=== PATIENT | male | born 1970 | race Caucasian/White ===

== ENCOUNTER 2018-07-14 20:35 | Observation (INO) | payer BC ==
[2018-07-14] MEDS ORDERED: Metoclopramide IV* 5 MG/ML 2 ML VIAL IV SLOW PU ONE (20:40)
[2018-07-14] MEDS ORDERED: Metoprolol Tartrate IV* 1 MG/ML 5 ML VIAL IV ONE ×2 (20:40→21:28)
--- NOTE | 2018-07-14 20:42 | ED ---
Headache - HPI Summary HPI Summary: This patient is a 47 year old male brought in by EMS presenting to [facility] with a chief complaint of headache and right sided weakness. The patient was driving home from a stress test when he experienced a frontal headache. Per EMS, he was experiencing some right leg weakness. The patient experienced nausea and vomiting 4 times. The patient states he works out regularly (5X/day) and states that this workout was not overly extertional for him. He says he did situps, pushups, and step-ups and the onset of the headache was during the step ups. He started feeling the weakness and vomiting in the car on his way home. Pt denies any fever, chills, erythema of eyes, sore throat, CP, SOB, cough, abdominal pain, dysuria, hematuria, myalgia, edema, rash, or dizziness. Vital signs: Systolic 160s, per EMS. - History Of Current Complaint Stated Complaint: HEADACHE, VOMITING, RIGHT SIDED WEAKNESS PER EMS Hx Obtained From: Patient, EMS Onset/Duration: Sudden Onset, Started minutes ago Timing: Minutes Location of Headache: Frontal - Allergies/Home Medications Allergies/Adverse Reactions: Allergies Allergy/AdvReac Type Severity Reaction Status Date / Time Penicillins Allergy Unknown Verified 07/14/18 20:53 Reaction Details Home Medications: Home Medications Acetaminophen [APAP] 2 tab PO DAILY 07/14/18 [History Confirmed 07/14/18] Multivitamin [Multivitamins] 1 cap PO DAILY 07/14/18 [History Confirmed 07/14/18 ] PMH/Surg Hx/FS Hx/Imm Hx Endocrine/Hematology History: Denies: Hx Diabetes Cardiovascular History: Denies: Hx Coronary Artery Disease - Family History Known Family History: Negative: Hypertension - Social History Alcohol Use: None Hx Substance Use: No Substance Use Type: Reports: None Hx Tobacco Use: No Review of Systems Negative: Fever, Chills Negative: Erythema Negative: Sore Throat Negative: Chest Pain Negative: Shortness Of Breath, Cough Positive: Vomiting, Nausea. Negative: Abdominal Pain Negative: dysuria, hematuria Negative: Myalgia, Edema Negative: Rash Positive: Headache, Weakness All Other Systems Reviewed And Are Negative: No Physical Exam - Summary Physical Exam Summary: Constitutional: Well-developed, Well-nourished, Alert. (-) Distressed. Patient clutching his head. HENT: Normocephalic; Atraumatic Eyes: Conjunctiva normal Neck: Musculoskeletal ROM normal neck. (-) JVD, (-) Stridor, (-) Tracheal deviation Cardio: Rhythm regular, rate normal, Heart sounds normal; Intact distal pulses; The pedal pulses are 2+ and symmetric. Radial pulses are 2+ and symmetric. (-) Murmur Pulmonary/Chest wall: Effort normal. (-) Respiratory distress, (-) Wheezes, (-) Rales Abd: Soft, (-) tenderness, (-) Distension, (-) Guarding, (-) Rebound Musculoskeletal: (-) Edema Lymph: (-) Cervical adenopathy Neuro: Alert, Oriented x3. No discernable weakness. Skin: Warm, Dry Psych: Mood and affect Normal Triage Information Reviewed: Yes Vital Signs On Initial Exam: Temp Pulse Resp BP Pulse Ox 97.5 F 79 18 167/97 97 07/14/18 20:49 07/14/18 20:49 07/14/18 20:49 07/14/18 20:49 07/14/18 20:49 Vital Signs Reviewed: Yes Procedures - Procedure Summary Procedure Summary: LUMBAR PUNCTURE PROCEDURE NOTE: With informed consent L4-L5 was accessed, no fluid returned. Betadine prep used. L3-L4 was accessed left lateral decubitus position. Opening pressure was 12 cm of water. 4 tubes of clear fluid collected. Patient tolerated the procedure well. Diagnostics - Laboratory Result Diagrams: 07/14/18 20:59 07/14/18 20:59 Lab Statement: Any lab studies that have been ordered have been reviewed, and results considered in the medical decision making process. - Radiology CXR Radiology Interpretation Completed By: ED Physician Summary of Radiographic Findings: No acute disease. Pending official radiologist report. - CT Brain CT Interpretation Completed By: Radiologist Summary of CT Findings: No acute intracranial abnormality. ED Provider has reviewed this report. - EKG 2053 Cardiac Rate: NL EKG Rhythm: Sinus Rhythm - 78 BPM Summary of EKG Findings: No STEMI. Headache Course/Dx - Course Course Of Treatment: This patient is a 47 year old male brought in by EMS presenting to [facility] with a chief complaint of headache and right sided weakness. Physical exam was unremarkable for weakness. Brain CT was unremarkable. The case was discussed with Dr. Fowler, Neurology at [facility], and he will perform a telestroke. Dr. Fowler recommended lumbar puncture. LUMBAR PUNCTURE PROCEDURE NOTE: With informed consent L4-L5 was accessed, no fluid returned. Betadine prep used. L3- L4 was accessed left lateral decubitus position. Opening pressure was 12 cm of water. 4 tubes of clear fluid collected. Patient tolerated the procedure well. Patient will be signed-out to Dr. Person pending CT scan and Lumbar Puncture results. - Diagnoses Provider Diagnoses: Severe headache - Physician Notifications Discussed Care Of Patient With: Jackson Fowler - Dr. Fowler recommended lumbar puncture, CTA, MRI. I did discuss with him the high sensitivity of CT between 95 and 99% at this time of onset for CT to rule out subarachnoid hemorrhage. He stood by his recommendation. - Critical Care Time Critical Care Time: 30-74 min - 60 mins Discharge - Sign-Out/Discharge Documenting (check all that apply): Sign-Out Patient Signing out patient TO: Awais Person - At shift change 2200 Patient Received Moderate/Deep Sedation with Procedure: No - Discharge Plan Condition: Stable Referrals: No Primary Care Phys,NOPCP [Primary Care Provider] - - Attestation Statements Document Initiated by Scribe: Yes Documenting Scribe: Archie Nash Provider For Whom Scribe is Documenting (Include Credential): Mauricio Levin MD Scribe Attestation: IArchie, scribed for Mauricio Levin MD on 07/14/18 at 2244. Status of Scribe Document: Ready
[2018-07-14 21:07] LABS: ABS Lymphocytes 0.9 10^3/ul (1.0-4.8); ABS Monocytes 0.6 10^3/ul (0-0.8); ABS Neutrophils 9.3 10^3/ul (1.5-7.7); Eosinophil % 0.2 %; Hematocrit 44 % (42-52); Hemoglobin 14.9 g/dL (14.0-18.0); Lymphocyte % 8.5 %; Mean Corpuscular HGB Conc 34 g/dL (31-36); Mean Corpuscular Hemoglobin 28 pg (27-31); Mean Corpuscular Volume 83 fL (80-94); Mean Platelet Volume 6.7 fL (7.4-10.4); Platelet Count 278 10^3/uL (150-450); Red Blood Count 5.26 10^6 /uL (4.18-5.48); Red Cell Distribution Width 14 % (10.5-15); White Blood Count 10.9 10^3/uL (3.5-10.8)
[2018-07-14 21:15] LABS: Activated Partial Thrombo Time 29.7 seconds (26.0-38.0); INR 1.01 (0.82-1.09)
[2018-07-14 21:25] LABS: ALT 34 U/L (7-52); AST 25 U/L (13-39); Albumin 4.6 g/dL (3.2-5.2); Albumin/Globulin Ratio 1.5 (1-3); Alkaline Phosphatase 63 U/L (34-104); Anion Gap 9 mmol/L (2-11); BUN/Creatinine Ratio 16.8 (8-20); Blood Urea Nitrogen 20 mg/dL (6-24); CO2 Carbon Dioxide 24 mmol/L (22-32); Calcium 9.6 mg/dL (8.6-10.3); Chloride 104 mmol/L (101-111); Cholesterol 158 mg/dL; EGFR African American 78.6 (>60); Glucose 147 mg/dL (70-100); HDL Cholesterol 33.1 mg/dL; LDL Cholesterol 97 mg/dL; Potassium 4.1 mmol/L (3.5-5.0); Sodium 137 mmol/L (135-145); Total Protein 7.6 g/dL (6.4-8.9); Triglycerides 139 mg/dL
[2018-07-14] MEDS ORDERED: Morphine 4 MG/ML VIAL (1 ml) 4 MG/ML VIAL IV ONE (21:28)
[2018-07-14 21:31] LABS: Troponin I 0.04 ng/mL (<0.04)
[2018-07-14] MEDS ORDERED: Magnesium Sulfate 2 GM IV* 2 GM/50 ML BAG IVPB ONE (21:52)
[2018-07-14] MEDS ORDERED: diPHENhydraMINE IV* 50 MG/ML 1 ml VIAL (BENADRYL) SLOW PUSH ONE (21:54)
[2018-07-14] MEDS ORDERED: Iohexol 350* (CONTRAST) 500 ML MDV IV ONE (22:17)
[2018-07-14 23:01] LABS: Body Fluid Source Cerebral Spinal
[2018-07-14 23:21] LABS: CSF Glucose 70 mg/dL (40-70)
--- NOTE | 2018-07-15 00:14 | ED ---
Progress - Progress Note Progress Note: The patient is a sign-out to Dr. Awais Person MD, from Dr. Mauricio Levin MD , at shift change at 2200 pending lumbar puncture and CTA results and disposition. Head CTA impression reveals no significant findings for stenosis, occlusion, or aneurysm. Lumbar puncture reveals no neutrophils or organisms observed with culture still pending. He is accepted for admission by Dr. Prajapati, hospitalist, at 0015. He is diagnosed with headache. He agrees with this plan and understands the need for admission at this time. - Results/Orders Results/Orders: Head CTA: 1. No hemodynamically significant stenosis or large vessel occlusion. 2. No intracranial aneurysm. ED physician has reviewed this radiology report. Course/Dx - Diagnoses Provider Diagnoses: Severe headache, TIA (transient ischemic attack) During the Visit The Following Alert/Code Occurred: Code [place] - Provider Notifications Discussed Care Of Patient With: Ramo Prajapati - hospitalist Time Discussed With Above Provider: 00:15 Instructed by Provider To: Other - Dr. Prajapati accepts the patient for admissino based on findings during the patient's case. - Critical Care Time Critical Care Time: 30-74 min - 60 mins Discharge - Sign-Out/Discharge Documenting (check all that apply): Patient Departure - Patient is accepted for admission by Dr. Prajapati., Receiving Sign-Out Receiving patient FROM: Mauricio Levin - Patient is a sign-out from Dr. Levin at shift change pending lumbar puncture and CTA results and disposition. Patient Received Moderate/Deep Sedation with Procedure: No - Discharge Plan Condition: Stable Disposition: ADMITTED TO [facility] - Billing Disposition and Condition Condition: STABLE Disposition: Admitted to [facility] - Attestation Statements Document Initiated by Jalil: Yes Documenting Scribe: Sirisha Back Provider For Whom Jalil is Documenting (Include Credential): Dr. Awais Person MD Scribe Attestation: Sirisha Busby scribed for Dr. Awais Person MD on 07/15/18 at 0254. Scribe Documentation Reviewed: Yes Provider Attestation: The documentation as recorded by the Sirisha diego accurately reflects the service I personally performed and the decisions made by , Dr. Awais Person MD Status of Scribe Document: Viewed
[2018-07-15] MEDS ORDERED: Butalb/Acetamin/Caff TAB* 1 TAB PO ONE (00:25)
--- NOTE | 2018-07-15 00:54 | HP ---
History of Present Illness - History of Present Illness Reason for Visit: headache History of Present Illness: Patient is a 47 year old man with no medical history who was exercising at a gym this evening, stepping up and down from a step, when he developed a moderately severe bifrontal headache. The headache was not associated with photophobia, visual changes or vomiting. He was able to continue exercising, and start to drive home. The headache continued and he began vomiting after stopping on the side of the road, and vomited 4 times. He then noted right arm heaviness and right leg weakness. He was brought to ER, under a code cannon protocol. The ER doctor communicated with Dr. Fowler at [facility], and it was advised that he have an LP to rule out subarachnoid hemorrhage. - Past Surgical History Past Surgical History: Other - RT ACT repair - Past Family History Family History: None - adopted - Past Social History Smoke: No Occupation: works in [employer] services Alcohol: None Drugs: None Lives: With Family - , 2 young children Review of Systems - Measurements Intake and Output: Intake and Output Last 24 Hours 07/12/18 07/13/18 07/14/18 07/15/18 06:59 06:59 06:59 06:59 Intake Total 50 Balance 50 Weight 95.254 kg Intake: IV Fluids 50 - Review of Systems Constitutional Symptoms: Negative: Fever Dermatology: Positive: Normal HEENT: Positive: Normal Eyes: Positive: Normal Thyroid: Positive: Normal Pulmonary: Positive: Normal Cardiology: Positive: Normal Gastroenterology: Positive: Normal Genital - Urinary: Positive: Normal Endocrinology: Positive: Normal Neurology: Positive: Headache, Change in Walking, Unexplained Weakness Negative: Migraines, Diplopia, Dizziness, Hx of Stroke\TIA, Hx of Seizures Psychiatry: Positive: Normal Allergic/Immunologic: Negative: Asthma, Immunocompromise Objective Active Medications: Ambulatory Orders Acetaminophen 2 tab PO DAILY 07/14/18 Multivitamin [Multivitamins] 1 cap PO DAILY 07/14/18 Vital Signs - 8 hr 07/14/18 07/14/18 07/14/18 20:49 20:52 20:53 Temperature 36.4 C Pulse Rate 79 79 80 Respiratory 18 Rate Blood Pressure 167/97 167/97 (mmHg) O2 Sat by Pulse 97 96 96 Oximetry 07/14/18 07/14/18 07/15/18 23:39 23:53 00:00 Temperature Pulse Rate 73 70 73 Respiratory 17 14 18 Rate Blood Pressure 148/87 142/92 (mmHg) O2 Sat by Pulse 94 94 95 Oximetry Oxygen Devices in Use Now: None Appearance: alert, no distress Eyes: No Scleral Icterus Ears/Nose/Mouth/Throat: NL Teeth, Lips, Gums, Mucous Membranes Moist Neck: NL Appearance and Movements; NL JVP, Trachea Midline Respiratory: Symmetrical Chest Expansion and Respiratory Effort, Clear to Auscultation Cardiovascular: NL Sounds; No Murmurs; No JVD, RRR, No Edema Abdominal: NL Sounds; No Tenderness; No Distention, No Hepatosplenomegaly Lymphatic: No Cervical Adenopathy, No Axillary Adenopathy Extremities: No Edema Skin: No Rash or Ulcers Neurological: Alert and Oriented x 3, NL Sensation, - - upper extrem bilat 5/5 motor, LLE 5/5, RLE 4+/5 Lines/Tubes/Other Access: Clean, Dry and Intact Peripheral IV Nutrition: Taking PO's Result Diagrams: 07/14/18 20:59 07/14/18 20:59 Additional Lab and Data: Laboratory Tests 07/14/18 07/14/18 07/14/18 20:59 20:59 20:59 INR (Anticoag Therapy) 1.01 APTT 29.7 Glucose 147 H Lactic Acid 1.6 AST 25 ALT 34 Troponin I 0.04 H* Cholesterol 158 LDL Cholesterol 97 HDL Cholesterol 33.1 Fluid Source Fluid WBC Fluid RBC CSF Glucose CSF Total Protein 07/14/18 07/14/18 22:53 22:53 INR (Anticoag Therapy) APTT Glucose Lactic Acid AST ALT Troponin I Cholesterol LDL Cholesterol HDL Cholesterol Fluid Source Cerebral spinal Fluid WBC 0 Fluid RBC 0 CSF Glucose 70 CSF Total Protein 38 Diagnostic Imaging: CT brain: no infarct or bleed CTA head/neck: no stenosis or occlusion Assess/Plan/Problems-Billing Assessment: - Patient Problems (1) TIA (transient ischemic attack) Current Visit: Yes Status: Acute Priority: High Code(s): G45.9 - TRANSIENT CEREBRAL ISCHEMIC ATTACK, UNSPECIFIED SNOMED Code(s): 269252268 Comment: -Patient will be admitted to observation, followed on telemetry -Differential includes small stroke, TIA, seizure, complicated migraine -Will have MRI in AM. -If subtle deficits do not resolve, or if MRI positive, should see neurology -Echo ordered to rule out cardioembolic source -Aspirin 81 mg/day initiated. (2) Hypertension Current Visit: Yes Status: Acute Priority: Medium Code(s): I10 - ESSENTIAL (PRIMARY) HYPERTENSION SNOMED Code(s): 37593124 Comment: -BP elevated -Has tolerated Beta fer in ER -Will start oral metoprolol (3) DVT prophylaxis Current Visit: Yes Status: Acute Priority: Low Code(s): Z29.9 - ENCOUNTER FOR PROPHYLACTIC MEASURES, UNSPECIFIED SNOMED Code(s): 905899095 Comment: -low risk Status and Disposition: observation
[2018-07-15] MEDS: Metoprolol Tartrate TAB* 25 MG PO SCH ×2 (01:07→08:32)
[2018-07-15] MEDS: Acetaminophen TAB* 325 MG PO PRN ×3 (02:50→13:46)
[2018-07-15 03:29] LABS: Urine Appearance Clear; Urine Bilirubin Negative (Negative); Urine Blood Negative (Negative); Urine Color Straw; Urine Glucose Negative (Negative); Urine Ketones Negative (Negative); Urine Nitrite Negative (Negative); Urine Protein Negative (Negative); Urine Specific Gravity 1.019 (1.010-1.030); Urine Urobilinogen Negative (Negative)
[2018-07-15 04:10] LABS: Troponin I 0.19 ng/mL (<0.04)
[2018-07-15 07:00] LABS: Troponin I 0.15 ng/mL (<0.04)
[2018-07-15] MEDS ORDERED: Aspirin EC TAB* 81 MG TAB.EC PO SCH (09:00)
[2018-07-15] MEDS ORDERED: Indomethacin CAP* 25 MG CAP PO PRN (12:45)
--- NOTE | 2018-07-15 14:08 | ECHO ---
*[facility]* [place] [address] Fax #: [phone] Transthoracic Echocardiogram Patient: Ian, Height: 79 in / Leodan Gomez 200.7 cm : 1970 Weight: 209.6 lb / Study Date: 07/15/2018 95.3 kg Age: 47 BP: 138 / 86 Gender: M BMI/BSA: 23.7 kg/m^2 HR: / 2.33 m^2 *Addresser: Xin Lazcano [facility] *Referring Physician: * Raom Prajapati *Reading Physician: Thee Nieto MD Indications: TIA. Right sided weakness, headachce. Conclusions Summary: 1. Left ventricle: The cavity size is normal. Wall thickness is at the upper limits of normal. Systolic function is normal. The estimated ejection fraction is 60-65%. 2. Atrial septum: A PFO is demonstrated by agitated saline contrast. 3. No significant valve dysfuntion. Study data: Transthoracic echocardiogram. Procedure: Transthoracic echocardiography was performed. Image quality was good. Intravenous agitated saline was administered. A bubble study was performed. Complete 2D, spectral Doppler, and color flow Doppler. Location: ICU Patient status: Inpatient. Patient room number: ICU-1. No prior study is available for comparison. Rhythm: Normal sinus rhythm. Findings Left ventricle: The cavity size is normal. Wall thickness is at the upper limits of normal. Systolic function is normal. The estimated ejection fraction is 60-65%. Wall motion is normal; there are no regional wall motion abnormalities. Left ventricular diastolic function parameters are normal. Right ventricle: Well visualized. The cavity size is normal. Wall thickness is normal. Systolic function is normal. Ventricular septum: Well visualized. Left atrium: Well visualized. The atrium is normal in size. Right atrium: Well visualized. The atrium is normal in size. Atrial septum: Well visualized. A PFO is demonstrated by agitated saline contrast. Mitral valve: Well visualized. The leaflets are normal thickness. There is no evidence of stenosis. There is trivial regurgitation. Aortic valve: Well visualized. The valve is trileaflet. The leaflets are normal thickness. There is no evidence of stenosis. There is trivial regurgitation. Tricuspid valve: Well visualized. The leaflets are normal thickness. There is no evidence of stenosis. There is trivial regurgitation. Pulmonic valve: Well visualized. The leaflets are normal thickness. There is no evidence of stenosis. There is trivial regurgitation. Aorta: The aorta is well visualized and normal size. The aortic root is not dilated. Pericardium: There is no pericardial effusion. No evidence of pleural fluid accumulation. Pulmonary arteries: Well visualized. Systemic veins: Not well visualized. Pulmonary veins: Visualization of the pulmonary venous anatomy is incomplete, but a significant abnormality is unlikely. Measurements Left ventricle Value Ref Aortic valve Value Ref BARBI, LAX 4.5 cm 4.2 - Selina diam, ED 1.8 cm ---- 5.8 Selina diam/bsa, ED 0.8 cm/m^2 ---- ESD, LAX 2.9 cm 2.5 - Peak v, S 1.29 m/sec ---- 4.0 VTI, S 24.4 cm ---- FS, LAX 35 % 25 - 43 Mean grad, S 3.0 mm Hg ---- PW, ED, LAX (H) 1.4 cm 0.6 - Peak grad, S 7.0 mm Hg ---- 1.0 LVOT/AV, VTI ratio 0.75 ---- FS 35 % 25 - 43 AR peak v 2.93 m/sec ---- Mid-wall FS 15 % -------- AR PHT 613 ms ---- PW, ED 1.0 cm 0.6 - AR peak grad 34 mm Hg ---- 1.0 PW/ID, ED 0.23 -------- Mitral valve Value Ref E', lat selina, TDI 11.4 cm/sec >=10.0 Peak E 0.71 m/sec -- -- E/e', lat selina, TDI 6 -------- Peak A 0.57 m/sec ---- E', med selina, TDI 10.1 cm/sec >=7.0 Decel time 151 ms -- -- E/e', med selina, TDI 7 -------- Peak grad, D 2.0 mm Hg ---- E', avg, TDI 10.8 cm/sec -------- Peak E/A ratio 1.2 ---- E/e', avg, TDI 7 <=14 Pulmonic valve Value Ref LVOT Value Ref Peak v, S 0.83 m/sec ---- Peak ashanti, S 0.88 m/sec -------- Peak grad, S 3.0 mm Hg ---- VTI, S 18.3 cm -------- Mean grad, S 1 mm Hg -------- Aortic root Value Ref Root diam 3.4 cm <4.4 Ventricular septum Value Ref Root max diam, ED 3.4 cm <4.4 IVS, ED 1.0 cm 0.6 - 1.0 Ascending aorta Value Ref AAo AP diam, S 2.8 cm ---- Right ventricle Value Ref AAo AP diam/bsa, S 1.2 cm/m^2 ---- ABRBI, LAX 3.3 cm -------- BARBI minor ax, A4C 3.2 cm 1.9 - Aortic arch Value Ref mid 3.5 Arch diam 2.7 cm ---- Left atrium Value Ref Decending aorta Value Ref Vol/bsa, ES, 1-p 16 ml/m^2 12 - 37 Franco peak ashanti 0.92 m/sec ---- A4C Right atrium Value Ref ML dim, ES, A4C 3.7 cm 2.6 - 4.4 SI dim, ES, A4C (H) 5.5 cm 3.4 - 5.3 SI dim/bsa, ES, A4C 2.4 cm/m^2 1.8 - 3.0 Legend: (L) and (H) yoan values outside specified reference range. Prepared and electronically signed by Thee Huertas MD 07/15/2018 14:07
[2018-07-15] MEDS ORDERED: Metoprolol Tartrate IV* 1 MG/ML 5 ML VIAL ONE (15:24)
[2018-07-15] MEDS ORDERED: ALPRAZolam TAB* 0.25 MG PO ONE (16:28)
[2018-07-15] MEDS ORDERED: Atorvastatin* 40 MG TAB PO SCH (17:00)
--- NOTE | 2018-07-15 17:29 | CONS ---
NEUROLOGY CONSULTATION NOTE: DATE OF CONSULT: 07/15/18 CONSULTING PROVIDER: Eva Reid NP REASON FOR CONSULT: Evaluate for TIA. CHIEF COMPLAINT: Headache and transient right-sided weakness. HISTORY OF PRESENT ILLNESS: Mr. Sosa is a 47-year-old fairly healthy man who presented to [facility] yesterday via EMS due to sudden onset severe thunderclap-like headache associated with nausea, vomiting, and transient right - sided upper and lower extremity weakness. 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 He did 20 pushups, 20 sit-ups and then was doing the step test. Two minutes into the step test, he noticed that he developed a sudden onset of holocephalic severe pain that was 10/10 in severity. He was able to complete the test. Once everything was over, he drove home and noticed that the headache was not going away. The patient then had a sudden onset of nausea and vomiting. He was having initially dry heaves 4-5 times before he started vomiting. He called his cousin who is a nurse and his cousin informed him that he needs to call EMS right away. During that process, the patient noticed that he had a heavy sensation in both arms, but right more than the left. When EMS arrived, his NIH stroke scale was apparently reported to be 0. When he arrived to the ED, his NIH stroke scale was 0. He was not a candidate for IV tPA or mechanical thrombectomy. He had CT head without contrast that showed no evidence of acute intracranial abnormality. He had a stat CTA head and neck that showed no hemodynamically significant stenosis or large vessel occlusion. Due to the concern of subarachnoid hemorrhage, the patient underwent lumbar puncture, which showed evidence of 0 RBC. The patient had also other lab work done, which showed a WBC of 10.9, hemoglobin of 14.9, hematocrit of 44, platelet count of 278. INR of 1.01. Sodium of 137, potassium of 4.1, chloride of 104, carbon dioxide of 24, anion gap of 9, BUN of 20, creatinine of 1.19, lactic acid of 1.6. His troponin I was elevated at 0.4, then 0.19, and then it trended down to 0.15. LDL is 97, cholesterol is 158, triglyceride of 139. Urinalysis is negative for pyuria. The patient was placed on aspirin and was given morphine and Fioricet for the headache. Currently, his headache is 4/10 in severity. MRI of brain showed no area of restricted diffusion to suggest stroke. Transthoracic echo showed a normal ejection fraction of 60% to 65%, atrial septal PFOs demonstrated by agitated saline. PAST MEDICAL HISTORY: None. MEDICATIONS: 1. Multivitamin. 2. Acetaminophen for shoulder pain. ALLERGIES: PENICILLIN. FAMILY HISTORY: No family history of stroke or seizure. SOCIAL HISTORY: The patient is , lives with spouse. He denied any tobacco or excessive alcohol use. He denied any recreational drug use. REVIEW OF SYSTEMS: A 14-point review of systems was obtained and otherwise negative except for what was mentioned in the HPI. PHYSICAL EXAM: Vitals: Temperature of 97.4, pulse of 70, respiratory rate of 16, oxygen saturation of 99, blood pressure of 135/88. General: Well-nourished , well- developed fit man who appears younger than stated age. He is in no acute distress. Head: Normocephalic, atraumatic. No occipital notch tenderness. Negative Spurling sign bilaterally. Eyes: Conjunctivae/corneas are clear. Neck is supple and symmetrical with no carotid bruits. Lungs are clear to auscultation bilaterally. Cardiovascular: Regular rate and rhythm with normal S1, S2. Extremities: Normal range of motion with no cyanosis. Skin : No skin lesions or laceration. Psych: Affect is broad and normal mood, easy to establish rapport. Neurological Examination: Mental status: Awake, alert, and oriented to person, place and time and general circumstances. Speech and language including expression, repetition, comprehension were assessed and found to be normal. Cranial Nerves: Normal confrontation testing bilaterally. Pupils are mid range and reactive to light. Normal consensual response. Extraocular muscles are intact. No ptosis. Sensation is intact in the forehead. Normal facial droop. He is able to hear throughout the history process. Symmetrical palatal elevation. Normal strength against shoulder shrug. Tongue is symmetrical and midline with no atrophy or fasciculation. Motor Examination: No abnormal movements or pronator drift. 5/5 strength in the upper and lower extremity proximal and distally bilaterally. Reflexes: Right/left, brachioradialis 2/2, biceps 2/2, triceps 2/2, patella 3/2, ankle 1/1 , plantar flexor/flexor. Sensation is intact to light touch and pinprick throughout. Coordination: Normal [id number] and rapid alternating movement. Gait and station narrow based. Normal stance and gait. No ataxia. ASSESSMENT AND RECOMMENDATIONS: Mr. Leodan Sosa is a 47-year-old man who is fairly healthy, who was doing a fitness test on exercising for a [employer] job that he is interested in, who developed sudden onset thunderclap headache associated with dry heaves, nausea, vomiting, and transient very short lasting bilateral upper extremity fatigue/questionable weakness that was involving the right more than the left upper extremity. Neurological examination showed no evidence of a focal neurological deficit or any motor or reflex asymmetry. MRI of the brain showed no evidence of acute stroke. 1. Thunderclap headache. The differential diagnosis here would be mostly reversible cerebral vasoconstriction syndrome given his questionable focal neurological deficit, transient ischemic attack to the posterior circulation can sometimes cause headaches, or primary exertional headache, but that should not be associated with nausea, vomiting, or focal neurological deficits. The patient did not have a stroke. 2. Ongoing headache. I suspect there is again a component of tension headache versus a primary exertional headache. Reassuringly, there is no evidence of subarachnoid hemorrhage on the CT, which is quite sensitive for the first 6 hours. However, to confirm that, he had no RBCs on the lumbar puncture that was done in the ER. Therefore, the headache is likely benign and not secondary to severe neurological problem. 3. Elevated troponin level. This could potentially be related to post exercise , cardiac stress induced, or related to hypertensive urgency. I defer further management to Cardiology. There is no contraindication to a stress test at this time given that the patient has not had any stroke. Recommendation: The treatment for RCVS is calcium channel fer to control his blood pressure. Other treatments we can consider indomethacin 25 mg twice daily if his cardiovascular workup is negative. On other hand, we should not be using NSAIDs to control his headaches if he has any acute cardiovascular risk factors. I do agree with continuing aspirin 81 mg daily. I also started the patient on atorvastatin 40 mg daily for primary stroke prevention. We cannot entirely exclude a TIA especially given the patient has a PFO. I do recommend further workup for a PFO, possible transesophageal echo to evaluate the size of the PFO, to evaluate for atrial septal aneurysm and to consider closing. If the ANTONINO is negative and he has recurrent neurological deficits, he may require a LINQ device for further monitoring. We will be more than happy to see the patient in 2-3 weeks as an outpatient. In the meantime, I recommend treating the headaches with acetaminophen, indomethacin only if any acute cardiovascular pathology is ruled out. I counseled the patient and advised him to come back to the ED medially if he has any similar symptoms in the past. TIME SPENT: I spent a total of 75 minutes of which more than 50% was spent obtaining history, examining the patient, education and counseling, and discussing the treatment plan as mentioned above. I also discussed these treatment options with the patient's spouse at bedside. [id number]/[facility] #: [id number] BOB
[2018-07-15 17:55] VITALS: BP 136/81
--- NOTE | 2018-07-15 19:00 | CONS ---
CARDIOLOGY CONSULTATION: DATE OF CONSULT: 07/15/18 CONSULTING PROVIDER: Ashli Reid NP. REASON FOR EVALUATION: Abnormal troponins. HISTORY OF PRESENT ILLNESS: This is a 47-year-old gentleman with no significant past medical history, who was in his usual state of health until yesterday. He said that he travelled to [place] from his home near [place] in order to perform an evaluation for a new job. As part of the evaluation, he was asked to do fairly intense exercise in a short period of time. With the timed event and he had to do approximately 20 push ups and 20 sit-ups and then run on a set of steps at 120 steps per minute for 3 minutes. He said during the exercise he started to get a headache about 2 minutes into the program. After he just worked through, he said after the exercise, he continue to have he headache and felt nauseous. He drove home, continue to have a headache and then developed worsening nausea and dry heaves, he had to stop 3 to 4 times over the course of driving a few miles. After the fourth time, he called family and then it was decided to call 911. They were en route to pick him up and asked him to call back if he had changes. He noticed that he had trouble lifting his left arm. In the emergency room, he was evaluated for a possible CVA and was seen by Neurology. His symptoms of arm and right leg weakness resolved after about an hour and a half. He has continued to have a headache. He had a CTA of his head, which revealed no hemodynamically significant stenosis , no intracranial aneurysm. He also had a brain CT, which revealed no hemorrhage or mass effect and he had a brain MRI, which revealed normal brain, no restricted diffusion to suggest acute infract. He also had a spinal tap performed last night, which had no red cells and it was clear. Glucose was 70, CSF protein was 38. The patient's labs were significant for mildly elevated troponin of 0.4, subsequently went to 0.19 and then 0.15. Because of those findings, a cardiology evaluation was requested. The patient said normally he works out fairly regularly 5 days a week. He goes to the gym. He warms up, does some push ups and some weights and crunches and then does about 20 minutes on a treadmill. He said he has no chest pain, no shortness of breath or headaches during those routine programs. He denies any fevers, chills, sweats. No hypertension, diabetes, hyperlipidemia. PMH: denies PAST SURGICAL HISTORY: Right ACL repair. No other surgeries. ALLERGIES: PENICILLIN. FAMILY HISTORY: Unknown as he is adopted. SOCIAL HISTORY: No he denies tobacco use. He drinks 3 bottles of green tea a day. He denies alcohol use. He is , has 2 children, ages 4 and 6. 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 REVIEW OF SYSTEMS: Review of systems x10 was negative except as above. PHYSICAL EXAM: He is a well-developed, well-nourished, fit gentleman, in no apparent distress. Atraumatic normocephalic. Extraocular muscles intact. Sclera anicteric. No significant JVD. Carotid 2+ without bruits. No cervical adenopathy. No thyromegaly. Abdomen: Bowel sounds present, nontender. No HSM. Femoral pulses intact without bruits. Distal pulses intact. No edema. Motor strength 5/5 bilaterally. No skin lesions. No rashes. A and O x 3. DIAGNOSTIC STUDIES/LAB DATA: Labs from yesterday: Labs were remarkable for a mildly elevated troponin of 1.19 and elevated troponins as listed above at 0.04 , 0.19, and 0.15. Cholesterol was 158, HDL 33, LDL 97, triglycerides 139, and white count of 10.9, normal hematocrit, platelet count 278. His EKG revealed sinus rhythm with inferior Q-waves, possible old inferior IA and he had an echocardiogram today, which revealed a normal LV function. Small PFO demonstrated by agitated saline contract. No significant valve dysfunction. IMPRESSION: I discussed the case with Dr. Whitaker. He felt that perhaps the patient has had vasomotor dysfunction in the setting of hypertension and we discussed the possibility of doing stress test to evaluate further part of discharge. He agreed with proceeding with a stress test. A stress was performed (see separate report), in brief it revealed that he was able to complete 8 minutes 50 seconds of a Enrike to 10.1 mets. He had a mild headache at rest, which increased with peak exercise and test was discontinued because of the mild increase in his headache. His blood pressure was 163/106 at rest and increased to 226/87. He had no significant EKG changes. He had 1 PVC. His echo revealed normal wall motion at rest and normal hyperdynamic response to exercise at the level of exertion attained. It was a nondiagnostic test due to low heart rate achieved, but no evidence of ischemia at the heart rate attained. IMPRESSION: My impression is that Mr. Sosa's symptoms are of unclear etiology and elevated troponins are of unclear etiology, possibly related to vasomotor dysfunction in the setting of sudden intense exercise and hypertension. Therefore, I have recommended the followin. 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 2. I suggested that we start Cardizem for a possible vasomotor dysfunction and hypertension. 3. I would suggest the consideration of a pharmacological stress test as an outpatient at some point in time. 4. He is to return, if he has recurrent headaches or paresis. 5. I also explained the importance of appropriate warmup and cool down prior to exercise and to avoid sudden intense isometric exercise. 6. Also I discussed with him and his the possibility that the PFO could result in some paradoxical shunting. It does not appear that this presentation was related to a cerebral infarct; however, I did ask him to avoid excessive straining and Valsalva. 7. He is to followup with neurology when he returns home. [id number]/[facility] #: [id number] BOB
--- NOTE | 2018-07-16 00:51 | DS ---
CC: Dr. Altamirano; Dr. Thee Huertas; Dr. Sachi Whitaker; Dr. Zee Maravilla; Dr. Soraya Vasquez, Neurology, [place] * DISCHARGE SUMMARY: DATE OF ADMISSION: 07/15/18 DATE OF DISCHARGE: 07/15/18 PRIMARY CARE PROVIDER: Dr. Altamirano, [place], [place]. MY ATTENDING FOR TODAY: Dr. Zee Maravilla.* (DICTATED BY NAYELY SUAZO NP) HOSPITAL COURSE: This is a very pleasant 47-year-old male patient that arrived in the emergency department after some exertional activity. The patient reports that he was doing some qualifying trials for a job. He was prepping for a new position in which he had to do some serious workout activities where he developed a moderately severe bifrontal headache. The headache came on very suddenly. He denied any visual changes or any focal weakness at the time the headache started. He was able to continue through his exercise routine and activities that evening; however, when he drove home his headache began to get worse. 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 Shortly thereafter, he noted some right-sided weakness and then a form of heaviness on the right arm and leg. He subsequently was brought to the emergency department where a carloz nowak was called. He was seen through Telemedicine by Dr. Fowler at [facility]. At that point, it was questionable whether the patient could have had a subarachnoid hemorrhage based on his sudden and abrupt onset of symptoms. He did receive a lumbar puncture which was negative. CAT scan of the head was negative. CTA of the head was negative for any large vessel occlusion. He was admitted to ICU for close observation. He did have moderate troponinemia that was also noted on his laboratory work and a mildly elevated creatinine, which was attributed to dehydration. The patient received IV fluid boluses in the emergency department. Troponin was trended, initially at admission was 0.04, peaked at 0.19 and trended down to 0.15. It is important to note the patient denied any anginal equivalence. He denied any chest pain or shortness of breath. The patient was seen by Dr. Whitaker of Neurology and Dr. Thee Huertas of Cardiology. Dr. Whitaker's impression on the patient's presentation was that of primary exertional headache in the setting of strenuous physical activity. The MRI that was obtained this morning was negative for any acute infarct. He did respond well to indomethacin today and although his headache did return shortly thereafter, the patient did have a lumbar puncture, which also can be contributing to his headache as well. Also, the patient did undergo a stress test today, which also precipitated another headache. These findings again do support the diagnosis of primary exertional headache. His stress test according to Dr. Huertas was low risk, although Dr. Huertas does recommend that the patient undergo nuclear stress imaging after the patient is discharged. Also of significant note, the patient did have some baseline hypertension once he was admitted. The patient does not report any previous history of hypertension. He was treated with beta-fer. Dr. Huertas also recommended that Cardizem be added to his regimen at this time and that he should be discharged on both of these medications. Dr. Whitaker also recommended that a daily baby aspirin should also be in the patient's regimen as well. The patient was medically cleared for discharge by both Neurology and Cardiology on the evening of 07/15/18. REVIEW OF SYSTEMS: The patient is complaining still of some mild headache, but denies any diplopia, no photophobia, no nausea, no vomiting, no chest pain, no shortness of breath, no urinary complaints or bowel complaints, no arthralgias or myalgias and no further constitutional complaints. PHYSICAL EXAMINATION: His physical exam today reveals a well-appearing gentleman of his stated age, in no acute distress. His vital signs are, blood pressure 135/88, heart rate 69, respiratory rate 16, O2 saturation 99% on room air with a temperature of 98.8. HEENT: The patient is atraumatic, normocephalic. PERRLA. Nonicteric sclerae. Oral mucosa is moist. Tongue is midline. Neck is supple, nontender. No JVD noted. No carotid bruits auscultated. Cardiovascular: S1, S2 present. No murmurs, gallops, or rubs noted. Rate and rhythm are regular. Lungs are clear bilaterally to auscultation. No wheezing, rhonchi, or rales noted. Abdomen is soft, nontender , and nondistended. Positive bowel sounds in all 4 quadrants. is deferred. Musculoskeletal: There is no clubbing, no cyanosis, no edema. He has +2 distal pulses palpable. Full range of motion and steady gait. Neurologic: No focal deficits noted. Psychiatric: He is cooperative and appropriate. DIAGNOSTIC STUDIES/LAB DATA: WBCs 10.9, RBCs 5.26, hemoglobin 14.9, hematocrit 44, platelets 278,000. Sodium 137, potassium 4.1, chloride 104, CO2 of 24, BUN 20, creatinine 1.19, GFR 65, glucose 147, lactic acid 1.6, calcium 9.6. Total bilirubin 0.40, AST 25, ALT 34, alk phos 63. Troponins as noted in hospital course above 0.04, 0.19, 0.15. Total protein 7.6, albumin 4.6, globulin 3.0, triglycerides 139, total cholesterol 158, LDL 97, HDL 33.1. Urinalysis with no acute infective process. CSF studies, WBC 0, RBC 0, total cell count 0, neutrophil 0, glucose 70, and CSF total protein is 38. Imaging: CT, CTA and MRI as noted in hospital course above. Transthoracic echocardiogram dated 07/15/18 shows left ventricle cavity size is normal, wall thickness is at its upper limits of normal, systolic function is normal, estimated EF is 60% to 65%, atrial septum, a small PFO was demonstrated by agitated saline contrast. There is no significant dysfunction. DISCHARGE DIAGNOSES: 1. Primary exertional headache. 2. Mild dehydration. 3. Uncontrolled hypertension. 4. Elevated troponin, likely demand ischemia. 5. Leukocytosis mild, likely reactive. DISCHARGE MEDICATIONS: Home medication is multivitamin 1 tablet daily to be continued. New medications include: 1. Diltiazem 120 mg p.o. daily. 2. Metoprolol tartrate 25 mg p.o. b.i.d. 3. Indomethacin 25 mg p.o. b.i.d. p.r.n. headache. 4. Aspirin 81 mg p.o. daily. DISPOSITION: The patient was discharged to home in the care of his in stable condition. All questions were answered. The patient stated his understanding of his new medications, discharge instructions, and followups. FOLLOWUPS: The patient was instructed to follow up with his primary care provider, Dr. Soraya Larry from Neurology in [place]. 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 We will defer to Dr. Altamirano's recommendations for a local food service employee that he could follow up with for his outpatient Lexiscan. We did recommend that the patient have the outpatient Lexiscan, should have followup laboratories, CBC and BMP for resolution of any deviations in his labs, particularly his renal function. He should see Dr. Vasquez, the neurologist in 4 to 5 weeks for any further discussion about his primary exertional headache. The patient was discharged again in stable condition. All questions were answered. TIME SPENT: Forty five minutes on disposition and patient counseling. NAYELY SUAZO NP [id number]/[facility] #: [id number] BOB
== END 2018-07-15 17:30 | disposition home or self-care (01) ==
LOC: ED 20:35 → ICU 07-15 00:54
PROVIDERS: ADMIT Internal Medicine; ATTEND Internal Medicine
DX: R51 Headache (principal); E86.0 Dehydration; I10 Essential (primary) hypertension; R79.89 Other specified abnormal findings of blood chemistry; D72.829 Elevated white blood cell count, unspecified; Z79.82 Long term (current) use of aspirin; Z88.0 Allergy status to penicillin; R53.1 Weakness; R11.2 Nausea with vomiting, unspecified
CPT/HCPCS: 36415; 62270; 70450; 70496; 70498; 70551; 71045; 80053; 80061; 81003; 82945; 83605; 84157; 84484; 85025; 85610; 85730; 86850; 86900; 86901; 87070; 87205; 87641; 89051; 93005; 93306; 93351; 96365; 96367; 96375; 96376; 99285; A9270-GY; G0378; J1200; J2765; J3475; J3490; Q9967